=== PATIENT | female | born 1950 | race Caucasian/White ===

== ENCOUNTER 2019-05-01 06:00 | Outpatient (RCR) | payer MEDICARE, SELFPAY | END 2019-05-31 00:01 | LOC: SOT 06:00 | PROVIDERS: Family Provider Family Medicine; Visit Provider Family Medicine | DX: R20.0 Anesthesia of skin (principal) | CPT/HCPCS: 97110 ×6; 97530 ×2 ==

== ENCOUNTER 2019-06-01 06:00 | Outpatient (RCR) | payer MEDICARE, SELFPAY | END 2019-06-07 23:00 | disposition home or self-care (01) | LOC: SOT 06:00 | PROVIDERS: Family Provider Family Medicine; PCP Family Medicine; Visit Provider Family Medicine | DX: R20.0 Anesthesia of skin (principal) | CPT/HCPCS: 97110; 97530 ==

== ENCOUNTER → 2019-06-14 15:15 | Outpatient (BNVA) | payer MEDICARE, SELFPAY | PROVIDERS: Family Provider Family Medicine; PCP Family Medicine; Referring Provider Family Medicine; Visit Provider Internal Medicine Rheumatology | DX: M15.4 Erosive (osteo)arthritis (principal); Z79.899 Other long term (current) drug therapy; M81.0 Age-related osteoporosis without current pathological fracture; Z79.52 Long term (current) use of systemic steroids | CPT/HCPCS: 99213 ==

== ENCOUNTER → 2019-09-14 10:35 | Outpatient (BNVA) | payer MEDICARE, SELFPAY | PROVIDERS: Family Provider Family Medicine; PCP Family Medicine; Visit Provider Internal Medicine Rheumatology | DX: Z79.899 Other long term (current) drug therapy (principal) | CPT/HCPCS: 36415; 80076; 82306; 82565; 85025; 85651; 86140 ==

== ENCOUNTER → 2019-09-14 10:48 | Outpatient (BNVA) | payer MEDICARE, SELFPAY | PROVIDERS: Family Provider Family Medicine; PCP Family Medicine; Visit Provider Internal Medicine Rheumatology | DX: Z79.899 Other long term (current) drug therapy (principal) | CPT/HCPCS: 85025 ==

== ENCOUNTER → 2019-12-01 10:46 | Outpatient (BNVA) | payer MEDICARE, SELFPAY | PROVIDERS: Family Provider Family Medicine; PCP Family Medicine; Visit Provider Internal Medicine Rheumatology | DX: Z79.899 Other long term (current) drug therapy (principal) | CPT/HCPCS: 36415; 80076; 82565; 85025; 85651; 86140 ==

== ENCOUNTER → 2019-12-22 15:25 | Outpatient (BNVA) | payer MEDICARE, SELFPAY | PROVIDERS: Family Provider Family Medicine; PCP Family Medicine; Visit Provider Internal Medicine Rheumatology | DX: M19.041 Primary osteoarthritis, right hand (principal); Z79.899 Other long term (current) drug therapy; M19.042 Primary osteoarthritis, left hand; M89.49 Other hypertrophic osteoarthropathy, multiple sites; M16.0 Bilateral primary osteoarthritis of hip | CPT/HCPCS: 99213 ==

== ENCOUNTER → 2020-06-19 08:33 | Outpatient (BNVA) | payer MEDICARE, SELFPAY | PROVIDERS: Family Provider Family Medicine; PCP Family Medicine; Visit Provider Internal Medicine Rheumatology | DX: M19.041 Primary osteoarthritis, right hand (principal); M19.042 Primary osteoarthritis, left hand; M89.49 Other hypertrophic osteoarthropathy, multiple sites; Z79.899 Other long term (current) drug therapy | CPT/HCPCS: 36415; 80076; 82306; 82565; 85025; 85651; 86140 ==

== ENCOUNTER → 2020-06-26 10:48 | Outpatient (BNVA) | payer MEDICARE, SELFPAY | PROVIDERS: Family Provider Family Medicine; PCP Family Medicine; Visit Provider Internal Medicine Rheumatology | DX: M15.4 Erosive (osteo)arthritis (principal); Z79.899 Other long term (current) drug therapy; M89.49 Other hypertrophic osteoarthropathy, multiple sites | CPT/HCPCS: 99213; 99214 ==

== ENCOUNTER → 2020-11-28 13:45 | Outpatient (BNVA) | payer MEDICARE, SELFPAY | PROVIDERS: Family Provider Family Medicine; PCP Family Medicine; Visit Provider Internal Medicine Rheumatology | DX: M16.2 Bilateral osteoarthritis resulting from hip dysplasia (principal); M19.041 Primary osteoarthritis, right hand; M19.042 Primary osteoarthritis, left hand; M89.49 Other hypertrophic osteoarthropathy, multiple sites; Z51.81 Encounter for therapeutic drug level monitoring; Z79.899 Other long term (current) drug therapy | CPT/HCPCS: 36415; 80076; 82565; 85025; 86140 ==

== ENCOUNTER → 2020-12-12 10:43 | Outpatient (BNVA) | payer MEDICARE, SELFPAY | PROVIDERS: Family Provider Family Medicine; PCP Family Medicine; Visit Provider Internal Medicine Rheumatology | DX: M19.041 Primary osteoarthritis, right hand (principal); M19.042 Primary osteoarthritis, left hand; G57.01 Lesion of sciatic nerve, right lower limb; M89.49 Other hypertrophic osteoarthropathy, multiple sites; Z79.899 Other long term (current) drug therapy | CPT/HCPCS: 99214 ==

== ENCOUNTER 2020-12-13 10:26 | Outpatient (CLI) | payer MEDICARE, SELFPAY ==
--- NOTE | 2020-12-13 10:41 | XR_ITS ---
WS: [id number] Chest 2 views, 12/13/2020 Clinical Data: R05 - Cough Comparison: None. Findings: No nodules, masses or effusions are seen. The heart is normal. The pulmonary vascularity is not increased. No pneumonia or pneumothorax is seen. XR/XR chest 2V* [id number] Impression: Negative chest.
== END 2020-12-13 10:27 | disposition home or self-care (01) ==
PROVIDERS: PCP Family Medicine; Visit Provider Internal Medicine Rheumatology
DX: R05 Cough (principal)
CPT/HCPCS: 71046

== ENCOUNTER → 2021-03-26 10:32 | Outpatient (BNVA) | payer MEDICARE, SELFPAY | PROVIDERS: PCP Family Medicine; Visit Provider Internal Medicine Rheumatology | DX: M16.0 Bilateral primary osteoarthritis of hip (principal); M19.041 Primary osteoarthritis, right hand; M19.042 Primary osteoarthritis, left hand; M89.49 Other hypertrophic osteoarthropathy, multiple sites; G57.03 Lesion of sciatic nerve, bilateral lower limbs; Z79.899 Other long term (current) drug therapy | CPT/HCPCS: 36415; 80076; 82565; 85025; 86140; 99214 ==

== ENCOUNTER → 2021-09-24 10:18 | Outpatient (BNVA) | payer MEDICARE, SELFPAY | PROVIDERS: PCP Family Medicine; Visit Provider Internal Medicine Rheumatology | DX: M19.041 Primary osteoarthritis, right hand (principal); M19.042 Primary osteoarthritis, left hand; M89.49 Other hypertrophic osteoarthropathy, multiple sites; G57.01 Lesion of sciatic nerve, right lower limb; Z79.899 Other long term (current) drug therapy | CPT/HCPCS: 99214 ==

== ENCOUNTER → 2022-03-11 10:43 | Outpatient (BNVA) | payer MEDICARE, SELFPAY | PROVIDERS: PCP Family Medicine; Visit Provider Internal Medicine Rheumatology | DX: M19.041 Primary osteoarthritis, right hand (principal); M19.042 Primary osteoarthritis, left hand; Z79.899 Other long term (current) drug therapy; M89.49 Other hypertrophic osteoarthropathy, multiple sites; M16.9 Osteoarthritis of hip, unspecified; G57.03 Lesion of sciatic nerve, bilateral lower limbs | CPT/HCPCS: 99214 ==

== ENCOUNTER → 2022-08-25 10:55 | Outpatient (BNVA) | payer MEDICARE, SELFPAY | PROVIDERS: PCP Family Medicine; Visit Provider Internal Medicine Rheumatology | DX: M19.041 Primary osteoarthritis, right hand (principal); M19.042 Primary osteoarthritis, left hand; G57.01 Lesion of sciatic nerve, right lower limb; M89.49 Other hypertrophic osteoarthropathy, multiple sites; Z79.899 Other long term (current) drug therapy | CPT/HCPCS: 99214 ==

== ENCOUNTER → 2023-02-16 10:43 | Outpatient (BNVA) | payer MEDICARE, SELFPAY | PROVIDERS: PCP Family Medicine; Visit Provider Internal Medicine Rheumatology | DX: M19.041 Primary osteoarthritis, right hand (principal); M19.042 Primary osteoarthritis, left hand; G57.01 Lesion of sciatic nerve, right lower limb; M89.49 Other hypertrophic osteoarthropathy, multiple sites; Z79.899 Other long term (current) drug therapy | CPT/HCPCS: 99214 ==

== ENCOUNTER → 2023-08-10 10:06 | Outpatient (BNVA) | payer MEDICARE, SELFPAY | PROVIDERS: PCP Family Medicine; Visit Provider Internal Medicine Rheumatology | DX: M19.041 Primary osteoarthritis, right hand (principal); M19.042 Primary osteoarthritis, left hand; G57.01 Lesion of sciatic nerve, right lower limb; M89.49 Other hypertrophic osteoarthropathy, multiple sites; Z79.899 Other long term (current) drug therapy | CPT/HCPCS: 99214 ==

== ENCOUNTER → 2023-10-09 09:02 | Outpatient (BNVA) | payer MEDICARE, SELFPAY | PROVIDERS: PCP Family Medicine; Referring Provider Family Medicine; Visit Provider Student in an Organized Health Care Education/Training Program | DX: M16.11 Unilateral primary osteoarthritis, right hip | CPT/HCPCS: 73522; 99204 ==

== ENCOUNTER → 2023-12-18 10:11 | Outpatient (BNVA) | payer MEDICARE, SELFPAY | PROVIDERS: PCP Family Medicine; Visit Provider Student in an Organized Health Care Education/Training Program | DX: M16.11 Unilateral primary osteoarthritis, right hip (principal) | CPT/HCPCS: 20610; 77002; 99213; J3301 ==

== ENCOUNTER → 2024-02-08 10:00 | Outpatient (BNVA) | payer MEDICARE, SELFPAY | PROVIDERS: PCP Family Medicine; Visit Provider Internal Medicine Rheumatology | DX: Z79.899 Other long term (current) drug therapy (principal); M89.49 Other hypertrophic osteoarthropathy, multiple sites; G57.01 Lesion of sciatic nerve, right lower limb; M19.041 Primary osteoarthritis, right hand; M19.042 Primary osteoarthritis, left hand | CPT/HCPCS: 36415; 80076; 82565; 85025; 85651; 86140; 99214 ==

== ENCOUNTER → 2024-03-17 09:08 | Outpatient (BNVA) | payer MEDICARE, SELFPAY | PROVIDERS: PCP Family Medicine; Visit Provider Student in an Organized Health Care Education/Training Program | DX: M16.11 Unilateral primary osteoarthritis, right hip (principal); Z01.818 Encounter for other preprocedural examination | CPT/HCPCS: 99214 ==

== ENCOUNTER 2024-04-18 13:20 | Outpatient (CLI) | payer MEDICARE, SELFPAY ==
--- NOTE | 2024-04-18 13:45 | CT_ITS ---
WS: [id number] CT RIGHT hip for JANNETTE procedure HISTORY: RIGHT TOTAL HIP ARTHROPLASTY Date: 04/18/2024 1:48 PM TECHNIQUE: Protocol for JANNETTE total hip replacement has been obtained. This includes axial imaging fro m the hip joint through the knee joint. DLP: [id number] FINDINGS: Advanced arthritis RIGHT hip with [id number]-xh-frxi articulation. Subchondral sclerosis with extensive sub chondral cystic change involving the femoral head and acetabulum. Hypertrophic spurring about the natividad nt line. Facet arthropathy lower lumbar spine. Degenerative arthritis both sacroiliac joints. Vascular calcifi cation. Sigmoid diverticulosis. CT/CT hip RT JANNETTE [id number] IMPRESSION: CT imaging provided for JANNETTE robotic total hip replacement.
== END 2024-04-18 13:21 | disposition home or self-care (01) ==
LOC: RAD 13:21
PROVIDERS: PCP Family Medicine; Visit Provider Student in an Organized Health Care Education/Training Program
DX: Z01.818 Encounter for other preprocedural examination (principal); M16.11 Unilateral primary osteoarthritis, right hip; M25.751 Osteophyte, right hip; M47.896 Other spondylosis, lumbar region; M46.1 Sacroiliitis, not elsewhere classified; K57.90 Diverticulosis of intestine, part unspecified, without perforation or abscess without bleeding
CPT/HCPCS: 73700

== ENCOUNTER → 2024-04-21 09:45 | Outpatient (BNVA) | payer MEDICARE, SELFPAY | PROVIDERS: PCP Family Medicine; Visit Provider Student in an Organized Health Care Education/Training Program | DX: M16.11 Unilateral primary osteoarthritis, right hip | CPT/HCPCS: 99214 ==

== ENCOUNTER → 2024-05-02 12:37 | Outpatient (BNVA) | payer MEDICARE, SELFPAY | PROVIDERS: PCP Family Medicine; Visit Provider Family Medicine | DX: Z01.818 Encounter for other preprocedural examination (principal) | CPT/HCPCS: 80053; 81003; 85025 ==

== ENCOUNTER 2024-05-09 17:35 | Observation (INO) | payer MEDICARE, SELFPAY ==
[2024-05-09] VITALS (15 sets, daily range): BP systolic 108–150; BP diastolic 48–96; PULSE 48–85; RESP 15–21; TEMP 36.2–36.8; O2SAT 96–100; BMI 28.3; BMI 29.2
[2024-05-09] MEDS: sodium chloride 0.9% 1,000 ML 30 ML IV (12:30)
[2024-05-09] MEDS: acetaminophen 1,000 MG/100 ML PIGGYBACK 400 MG IV ×2 (12:31→20:35)
[2024-05-09] MEDS: ketorolac 30 mg/mL INJ IVP (12:31)
[2024-05-09] MEDS: scopolamine 1.5 Patch 1 PATCH TRANSDERMA (12:31)
--- NOTE | 2024-05-09 12:49 | ANES.PREANE2 ---
Pre-Anesthetic Assessment Height/Weight: Height 5 ft Weight 145 lb Temp Pulse Resp BP Pulse Ox O2 Del Method 97.7 F 85 16 139/66 98 Room Air 05/09/24 12:13 05/09/24 12:13 05/09/24 12:13 05/09/24 12:13 05/09/24 12:13 05/09/24 12:14 Preop Diagnosis: Hip osteoarthritis Operation Date: 05/09/24 13:40 Proposed Procedures p Kieran Robot Total Hip Arthroplasty(Right) - Peng Luevano, DO Was Beta Sofy taken within 24 hours: N/A Was Clonidine taken within 24 hours: N/A Last intake: Intake Last Liquid Date 05/08/24 Last Liquid Time 23:50 Last Solid Date 05/08/24 Last Solid Time 23:50 Social No alcohol and No tobacco Exam alert, oriented x 3, clear to auscultation bilaterally and regular rate & rhythm Airway Submandibular: within normal limits Cervical ROM: within normal limits Mallampati: Class II Dentition: full Comments: Comments: Denies any loose teeth Anesthetic Plan ASA status: 2 Anesthesia: MAC and Regional (specify below) Other: No prior issues with anesthesia NPO since yesterday History of hypertension on losartan?HCTZ Patient has been taking tramadol for her hip pain Denies any pulmonary issues Labs 05/02/2024 reviewed acceptable for procedure. Type and screen sent off METs greater than 4 Plan for spinal anesthetic Medications/Allergies Home Medications Medication Instructions Recorded Confirmed Last Taken Type alprazolam 0.25 mg tablet 0.25 mg PO BID 06/14/19 05/05/24 05/05/24 History ascorbate calcium (vitamin C) 500 500 mg PO BID 06/14/19 05/05/24 05/05/24 History mg tablet biotin 1,000 mcg chewable tablet 1,000 mcg PO BID 06/14/19 05/05/24 Unknown History calcium 300 mg-vit D3 200 tab PO DAILY 06/14/19 05/02/24 Unknown History wvkn-hsqkqicx-winxsavak 13.5 mg tablet (Citracal Plus Bone Density Builder) cholecalciferol (vitamin D3) 25 1,000 unit PO QID 06/14/19 05/02/24 Unknown History mcg (1,000 unit) chewable tablet multivitamin 1 tab PO QAM 06/14/19 05/05/24 05/05/24 History tramadol 50 mg tablet 50 mg PO BID PRN Pain (Scale Score 06/14/19 05/05/24 Unknown History 4-6) lutein 20 mg tablet 20 mg PO BID 09/13/19 05/05/24 Unknown History omega-3 fatty acids 1,000 mg 1,000 mg PO BID 09/13/19 05/05/24 Unknown History capsule (Fish Oil Concentrate) losartan 100 1 tab PO DAILY 06/26/20 05/09/24 05/09/24 History mg-hydrochlorothiazide 12.5 mg tablet acetaminophen 500 mg capsule 1,000 mg PO BID 08/10/23 05/05/24 Unknown History ferrous sulfate [High Potency Iron] PO 08/10/23 05/02/24 Unknown History prednisone 5 mg tablet See Rx Instructions .Route 12/22/23 05/05/24 Unknown Rx .COMPLEX #30 tabs gabapentin 300 mg capsule 600 mg (2 x 300 mg) PO .HS #180 02/08/24 05/09/24 05/09/24 Rx caps hydroxychloroquine 200 mg tablet 200 mg PO BID #180 tabs 02/08/24 05/05/24 05/05/24 Rx (Plaquenil) Allergies Allergy/AdvReac Type Severity Reaction Status Date / Time sulfacetamide Allergy unknown Verified 05/05/24 11:21 Current Medications Generic Name Dose Route Start Last Admin Trade Name Freq PRN Reason Stop Dose Admin Sodium Chloride 1,000 mls @ 30 mls/hr 05/09/24 12:15 05/09/24 12:30 Sodium Chloride 0.9% IV 05/10/24 12:14 30 mls/hr .Q24H BOBO Administration PFSH Anesthesia Medical History Piriformis syndrome of right side DJD (degenerative joint disease), multiple sites Osteoarthritis of hands, bilateral Unspecified osteoarthritis, unspecified site High risk medication use Immunization counseling Medication monitoring encounter 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
--- NOTE | 2024-05-09 13:17 | W.PM.OPSUD ---
Surgery/Procedure H&P Update DATE OF PROCEDURE: May 09, 2024 DATE H&P PERFORMED: 04/21/24 H&P UPDATE INFORMATION: I have reviewed H&P completed within last 30 days, I have examined patient prior to procedure and No changes to prior documentation CHANGES TO PREVIOUS DOCUMENTATION: Patient is cleared the preoperative clearance process she has held her hydroxychloroquine. At this point time reviewing of her hip as well as with her pannus we talked about proceeding with a posterior approach I feel this would be a accommodate for her pannus as well if the case intraoperatively we determined that we need to cement this would be a more utility Terrien approach we talked about this in detail and she understands the ins and outs procedure risk benefits complication alternatives surgery and through shared decision make elects proceed with a right total hip arthroplasty?Kieran robotic assisted with posterior approach. All questions answered. PREOP DIAGNOSIS: Right hip osteoarthritis PRIMARY INDICATION FOR PROCEDURE: Right hip degenerative joint disease PLANNED PROCEDURE: Operation Date: 05/09/24 13:40 Proposed Procedures p Kieran Robot Total Hip Arthroplasty(Right) - Peng Luevano DO
[2024-05-09] MEDS: ceFAZolin 2,000 mg SDV 2000 MG IVP (13:58)
[2024-05-09] MEDS: tranexamic acid 1,000 mg/10mL SDV 1000 MG IV (13:59)
[2024-05-09] MEDS: VANCOMYCIN ADD-Vantage 1,000 MG VIAL 1000 MG XX ×2 (14:57→16:19)
--- NOTE | 2024-05-09 16:28 | P.BOP_ITS ---
Date of Procedure: 05/09/2024 Surgeon: Peng Luevano DO Telecommunications Operator(s): Jackson Luevano PA-C Procedure(s) performed: Right total hip arthroplasty?Kieran robotic assisted (posterior approach) Findings of the procedure(s): Patient found to have right hip degenerative joint disease underwent procedure as planned without issues or complications Estimated blood loss: 100 mL Specimen(s) removed: Femoral head resection and acetabular reamings removed Post-operative diagnosis: Right hip degenerative joint disease
--- NOTE | 2024-05-09 16:29 | PM.OP ---
Operative Report Date of procedure: May 09, 2024 Surgeon: Peng Luevano DO Historical Guide: Jackson Luevano PA-C: PA was necessary for assistance in this case with leg positioning, hip reductions, retraction and protection of neurovascular structures as well as assistance in implantation wound closure and dressing application. Procedure: Preop Diagnosis?Right hip degenerative joint disease Post-op diagnosis: Right hip degenerative joint disease Procedure done: Right total hip arthroplasty?robotic assisted Kieran?(posterior?approach) Implants: [place] total hip arthroplasty implants 46 mm cluster hole acetabular shell 6.5 mm x (25 and 15 mm) acetabular screws Alpha code C MDM cementless metal liner Reno insignia size 4 stem, high offset Alpha code C MDM +0 mm head Surgeon: Peng Luevano DO Estimated blood loss: 100 mL IV fluids: 1200 mL Urine output: 150 mL Complications: None Condition: stable Disposition: floor Brief History: Patient's been seen and worked up in the outpatient setting and findings consistent with Right hip degenerative joint disease. Pt has failed conservative treatment this is causing severe pain and decreased mobility. We talked about his treatment options as far as nonoperative and operative intervention. Pt ultimately through shared decision-making would like to proceed with a Right total hip arthroplasty. we detailed out risk benefits complications alternatives to surgical and nonsurgical treatment options. Understanding risk for surgery patient elects to proceed with Right total hip arthroplasty robotic assisted Kieran utilizing a?posterior?approach. All questions answered. Patient consent obtained today and elects proceed with surgery today. Procedure: Patient was seen evaluate in preoperative holding area.? Consent was reviewed and signed with patient.? Correct extremity was then marked.? Patient seen evaluate by anesthesia department once cleared for surgery pt was taken back to the operative suite.? Patient underwent spinal anesthesia per the anesthesia department.? This point time pt was then placed on the operative suite and table.? Pt was then placed in lateral decubitus patient worked with the Right hip up.? Patient was secured in the lateral decubitus position with pegboard. All bony prominences well-padded pt was properly secured to the bed.? At this point time the Right lower extremity was then prepped and draped in standard orthopedic fashion with care not to drape out the iliac wing for pelvic array placement.? Final timeout performed.? Patient received appropriate preoperative antibiotics. Started off with establishment of pelvic array pins.? A small longitudinal incision was made directly over the iliac wing.? Sharp scalpel excision through skin and subcutaneous tissue directly onto bone.? Next I then loaded my pelvic pin.? This was then drilled through the iliac wing corridor with excellent fixation.? Next I then loaded the guide which was placed directly onto bone and then subsequently placed 2 more pins to secure fixation.? Next the pelvic array was then sent had excellent visualization with the Kieran robot and was secured. EKG pad was placed on the distal lateral aspect of the femur and sterile aseptic technique and use as my distal reference point. Next I proceeded with my standard?posterior?approach.? Sharp scalpel through skin and subcutaneous tissue this was centered over the greater trochanter.? I then utilized a Santiago elevator over the gluteus mookie fascia.? Next the fascia was then split longitudinally with bipolar electrocautery.? Next a Charnley retractor was then placed.? All bone was then placed into the abductors.? A standard full-thickness release of the piriformis and the short external rotators along with the capsule to grade 1 full thick sleeve for later repair was then placed straight down to the lesser trochanter.? Lesser trochanter was then subsequently identified.? Prior to dislocating the hip we then placed our greater trochanter femur checkpoint.? We marked our appropriate checkpoint for referencing on pelvic array.? At this point in time we then established both of our checkpoints as well as referencing for leg lengths I utilized the EKG pad as my distal reference point. The legs were marked and traced to have appropriate position on the drapes to allow for accurate reading.? Preoperative leg lengths set. Once this was then established I then proceeded with dislocation of the femoral head.? At this point Hohmann's were then placed superiorly and inferiorly along the femoral neck.? The sciatic nerve was protected throughout this case.? At this point time I then utilized the Kieran robot and referencing point to reference different aspects along the femoral head and neck for my appropriate neck length.? These were referenced on the inferior mid substance as well as up into the superior shoulder of the femoral neck.? This marked my oscillating saw was used to make my femoral neck cut.? Femoral head was then removed. Next the leg was placed in appropriate position and my anterior and?posterior?acetabular retractors then placed.? Next I excised the labrum and then remove the pulvinar.? I did do a small release of the inferior capsule which was severely taut to allow for easier placement of my reamers as well as reduction.? Acetabulum was thoroughly irrigated. At this point in time keeping my retractors in place I subsequently loaded up the [employer] robot for my acetabular reaming.?? Next I then set my 46 reamer under the [employer] robot and subsequently held this with appropriate preplanned preop planned version of 40 degrees of abduction angle as well as 23 degrees of anteversion.? This preoperative plan was then subsequently made to accommodate for ranges of motion of impingement?that was assessed preoperatively utilizing the [employer] robotic software technology. I then subsequently reamed this to the appropriate depth with 46mm reamer this had excellent bleeding bone circumferentially was determined to be in the satisfactory cup size. We opened up the acetabular shell clusterhole of the 46 mm Hugo this was then loaded onto my impacting system and then I subsequently impacted this to appropriate depth.? This was then removed from the robot and I used the [employer] probe at the center to confirm on the CT scan?that this was down on bone which it was.? Next I then drilled and placed 2 acetabular screws with excellent fixation these were drilled and measured to be 25mm and 15 mm this was in the?posterior?superior aspect of the acetabulum had excellent bite and fixation.? The cup was solid and had excellent press-fit fixation. next, opened the alpha code C MDM cementless liner then subsequently placed in appropriate position and impacted into place.? At this point time I then utilized a small rongeur to clear off the shoulder of the femoral neck to clear out the soft tissue envelope for my box osteotome.? Next box osteotome was used a canal finder was placed as well as a lateral lysing rattail rasp.? Once I was appropriately lateralized I then sequentially broached up to a size 4 femoral stem.? This was impacted to appropriate depth and flushed with my femoral neck cut.? I utilized a calcar planer to calcar plane. This point I loaded a standard size neck and subsequently reduced the hip.? At this point in time the hip was taken through range of motion before evaluating with the robot on leg lengths.? This point in time I satisfied with the high offset having satisfactory aspect comparative to our preoperative plan as well as slightly lengthening which was our preoperative plan as well this was found to have excellent stability in all planes of motion. The hip was taken through range of motion and had excellent stability with hip flexion and internal rotation with no evidence of instability and had appropriate shuck.? This point time utilized the Kieran probe from our femur checkpoint down to her distal checkpoint. Satisfied with this trial implants, at this point I dislocated the hip and then called for my final implants with excellent stability in all planes.? Opened up a size 4 femoral Ren[place] insignia stem high offset. My trials were then removed and then subsequently impacted my Hugo insignia to the same level.? This point in time I trialed up to a +0 mm neck length which helped match with Kieran robotic assistance had appropriate leg lengths comparative to our preoperative plan and this was confirmed clinically. I elected for the final +0 mm MDM femoral head. Final MDM femoral head component was then opened and the trunnion was dried and this was impacted with excellent fixation and the hip was subsequently reduced.? We measured our final leg lengths which were appropriate patient had excellent stability in all ranges of motion.? This point time robotic pins and checkpoints were removed.? I remove the femur checkpoint as well as my pelvic array and iliac wing pins.? Appropriate counts were then made.? This point time thoroughly irrigated the wound bed with pulse lavage.? Vancomycin powder was then sprinkled into the wound bed.? I then performed a standard capsular and external rotator repair utilizing #5 Ethibond and this was tied and repaired through bone tunnels hip, sciatic nerve was protected throughout the of the case. Was then kept in abduction external rotation and subsequently closed the fascial layer with Ethibond suture as well as running strata fix suture.? I then closed the deep subcutaneous layer as well as superficial subcutaneous layer with running strata fix suture as well as 3-0strata fix for skin.? Prineo glue dressing was then placed over the skin.? I then irrigated the pelvic array pin site.? There is were then closed with interrupted 0, 2-0 Vicryl suture and Monocryl as well as Prineo glue for the skin.? Incisions were then covered with nena and Silverlon dressing.? Patient was awakened from anesthesia and taken to PACU in stable condition Disposition: Patient taken to PACU in stable condition.? Patient will receive appropriate discharge instructions as well as DVT prophylaxis and pain medication.? Patient will be admitted to the floor for observation should be evaluated by the internal medicine team for medical management.? Patient received appropriate DVT prophylaxis as well as pain medication PT/OT weightbearing as tolerated Right lower extremity with?posterior?hip precautions, Postoperative Abx and TXA.? We will follow-up with patient in the office in 2 weeks.? Patient understands agrees with current plan.? All questions answered.
--- NOTE | 2024-05-09 16:51 | P.CONIM_ITS ---
Providers/Reason For Consult Consulting Physician/Specialty*: Postop management Reason for Consult*: Hospitalist Attending Physician: Peng Luevano DO Primary Care Provider: Erfem Hansen MD History of Present Illness History of Present Illness Adamaris Wilson is a 73 year old female status post right total hip arthroplasty history of inflammatory arthritis, hypertension, hospitalist service was consulted for postop management. Patient is doing well, not endorsing active pain, tolerating diet, discontinue IV fluids, she is excited to go home tomorrow stating that she has 2 dogs, she lives with her niece. No active chest pain or shortness of breath. Blood pressure has been stable. Review of Systems Const: Denies: fever(s) Eyes: Denies: change in vision ENMT: Denies: throat pain Card: Denies: chest pain Medications/Allergies Home Medications Medication Instructions Recorded Confirmed Last Taken Type alprazolam 0.25 mg tablet 0.25 mg PO BID 06/14/19 05/05/24 05/05/24 History ascorbate calcium (vitamin C) 500 500 mg PO BID 06/14/19 05/05/24 05/05/24 History mg tablet biotin 1,000 mcg chewable tablet 1,000 mcg PO BID 06/14/19 05/05/24 Unknown History calcium 300 mg-vit D3 200 tab PO DAILY 06/14/19 05/02/24 Unknown History yuwf-sljejizy-nycnbembj 13.5 mg tablet (Citracal Plus Bone Density Builder) cholecalciferol (vitamin D3) 25 1,000 unit PO QID 06/14/19 05/02/24 Unknown H istory mcg (1,000 unit) chewable tablet multivitamin 1 tab PO QAM 06/14/19 05/05/24 05/05/24 History tramadol 50 mg tablet 50 mg PO BID PRN Pain (Scale Score 06/14/19 05/05/24 Unknown History 4-6) lutein 20 mg tablet 20 mg PO BID 09/13/19 05/05/24 Unknown History omega-3 fatty acids 1,000 mg 1,000 mg PO BID 09/13/19 05/05/24 Unknown History capsule (Fish Oil Concentrate) losartan 100 1 tab PO DAILY 06/26/20 05/09/24 05/09/24 History mg-hydrochlorothiazide 12.5 mg tablet acetaminophen 500 mg capsule 1,000 mg PO BID 08/10/23 05/05/24 Unknown History ferrous sulfate [High Potency Iron] PO 08/10/23 05/02/24 Unknown History prednisone 5 mg tablet See Rx Instructions .Route 12/22/23 05/05/24 Unknown Rx .COMPLEX #30 tabs gabapentin 300 mg capsule 600 mg (2 x 300 mg) PO .HS #180 02/08/24 05/09/24 05/09/24 Rx caps hydroxychloroquine 200 mg tablet 200 mg PO BID #180 tabs 02/08/24 05/05/24 05/05/24 Rx (Plaquenil) Allergies Allergy/AdvReac Type Severity Reaction Status Date / Time sulfacetamide Allergy unknown Verified 05/05/24 11:21 Current Medications Generic Name Dose Route Start Last Admin Trade Name Freq PRN Reason Stop Dose Admin Sodium Chloride 1,000 mls @ 30 mls/hr 05/09/24 12:15 05/09/24 12:30 Sodium Chloride 0.9% IV 05/10/24 12:14 30 mls/hr .Q24H BOBO Administration PFSH Acute PFSH: Medical History Piriformis syndrome of right side DJD (degenerative joint disease), multiple sites Osteoarthritis of hands, bilateral Unspecified osteoarthritis, unspecified site High risk medication use Immunization counseling Medication monitoring encounter 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 Osteoporosis Erosive osteoarthritis of hands, bilateral Surgical History No history of previous surgery Family History Other Diabetes Rheumatoid arthritis Denies family history of Systemic lupus erythematosus (SLE) in adult Stroke Social History Smoking and tobacco/nicotine status: never used tobacco/nicotine Alcohol intake: never Substance/Drug Use: never Vitals/I&O/Wt Last Vital Signs Temp 97.7 F 05/09/24 12:13 Pulse 85 05/09/24 12:13 Resp 16 05/09/24 12:13 BP 139/66 05/09/24 12:13 Pulse Ox 98 05/09/24 12:13 O2 Del Method Room Air 05/09/24 12:14 05/09/24 05/09/24 05/09/24 06:59 14:59 22:59 Intake Total 100 / 100 100 / 200 Balance 100 / 100 100 / 200 Weight last 48 hrs Weight 65.771 kg Physical Exam Narrative: Awake alert Euvolemic GCS 15 S1, S2 Currently on room air Hemodynamically stable Pleasant and cooperative Abdomen soft Lower extremity without any signs of neurovascular compromise Not complaining active distress Urinary Catheter Management: Daly: Cath Placed During This Visit: yes Urinary Catheter Date of Insertion: 05/09/24 Urinary Catheter Time of Insertion: 14:20 A&P Assessment and plan (1) Erosive osteoarthritis of hands, bilateral: (2) 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: (3) S/P total hip arthroplasty: (4) Hypertension: Plan Right total hip arthroplasty postop day 0 I will resume her hydroxychloroquine Continue losartan for hypertension Eliquis added as DVT prophylaxis by orthopedics Physical therapy ordered Monitor H&H CBC BMP tomorrow Discontinue IV fluids if she is able to tolerate diet Consult Attestations Medical Necessity Statement: Anticipating discharge by orthopedics tomorrow Diagnoses Erosive osteoarthritis of hands, bilateral M15.4 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
--- NOTE | 2024-05-09 16:54 | XRR_ITS ---
PROCEDURE INFORMATION: Exam: XR Right Hip Exam date and time: 05/09/2024 5:09 PM Age: 73 years old Clinical indication: Device placement; Other: Total RT hip; Prior surgery; Surgery date: Post-operative (0-2 days); Surgery type: Post op RT hip; Additional info: S/P R elizabeth TECHNIQUE: Imaging protocol: Radiologic exam of the right hip. Views: 1 view hip with pelvis when performed. COMPARISON: CT hip RT [facility] [id number] 04/18/2024 1:49 PM FINDINGS: Bones/joints: Status post right total hip replacement. Acetabular and proximal femoral components are intact and in satisfactory alignment. There are postoperative changes in the adjacent soft tissues including air and edema and/or hematoma. There are marginal osteophytes across the left hip joint. There is air in the right hip joint. Soft tissues: See Bones/joints finding. XR/XR hip RT 2-3V wo/w pel* [id number] IMPRESSION: Status post right total hip replacement with adjacent postoperative changes.
--- NOTE | 2024-05-09 16:55 | PM.PACU ---
PACU note Narrative: Patient is a 73-year-old female just underwent a right total hip arthroplasty. Pt transferred to PACU in stable condition. Dressing is dry. pt is awake and alert. Compartments are soft and compressible. distal pulses are palpable toes are warm and well-perfused. Cap refill is normal and under 2 seconds. Unable to assess any further motor or sensation to lower extremity due to residual spinal block. Pain is controlled. Exam: awake Disposition: admitted
--- NOTE | 2024-05-09 17:36 | PC.NURSE ---
1700 - Dr Pond notified of pts heart rate from 44 - 52 - no new orders rec'd
[2024-05-09] MEDS: oxyCODONE 5 mg IR Tab/Cap PO (18:14)
--- NOTE | 2024-05-09 19:16 | ANE.PACU2 ---
Inpatient post-anesthesia follow up: Airway intact: Yes Vital signs: Temperature 97.9 F Pulse Rate 63 Respiratory Rate 17 Blood Pressure 127/61 Pulse Oximetry 99 Oxygen Delivery Me thod Room Air Oxygen Flow Rate 0 Fraction of Inspir ed Oxygen Hydration adequate: Yes Nausea and vomiting: No Pain level: 1 Mental status: Baseline
[2024-05-09] MEDS: sennosides-docusate Tablet 2 TAB PO (20:38)
[2024-05-09] MEDS: chlorhexidine gluconate 0.12% Btl 473 mL 30 ML MUCOUS MEM (20:38)
[2024-05-09] MEDS: calcium carb-vit d 600mg/400unit 1 Tablet 1 EACH PO (20:38)
[2024-05-09] MEDS: iron polysaccharide complex 150 mg Capsule PO (20:38)
[2024-05-09] MEDS: lactated ringers 1,000 ML 75 ML IV (20:39)
[2024-05-09] MEDS: mupirocin oint 22 gm 1 APPLIC NASAL (20:39)
[2024-05-09] MEDS: ceFAZolin 2,000 MG in sodium chloride 0.9% (plus) 50 ML 100 MG IV (20:40)
[2024-05-09] MEDS: ketorolac 30 mg/mL INJ 15 MG IVP (20:40)
[2024-05-09] MEDS: tranexamic acid 1,000 MG/100 ML PREMIX 600 MG IV (22:23)
[2024-05-10] VITALS (7 sets, daily range): BP systolic 113–131; BP diastolic 50–61; PULSE 63–84; RESP 16–18; TEMP 36.6–37.2; O2SAT 91–99
[2024-05-10] MEDS: oxyCODONE 5 mg IR Tab/Cap PO ×2 (02:58→10:52)
[2024-05-10] MEDS: acetaminophen 1,000 MG/100 ML PIGGYBACK 400 MG IV ×2 (04:53→10:52)
[2024-05-10] MEDS: ceFAZolin 2,000 MG in sodium chloride 0.9% (plus) 50 ML 100 MG IV ×2 (05:06→12:50)
[2024-05-10 05:41] LABS: Basophils % 0.8 %; Eosinophils # 0.2 10^3/uL (0.0-0.8); Eosinophils % 3.7 %; Lymphocytes # 1.2 10^3/uL (0.8-4.8); Lymphocytes % 23.6 %; Mean Corpuscular HGB Conc 32.2 g/dL (30-55); Mean Corpuscular Hemoglobin 32.7 pg (27-33); Mean Corpuscular Volume 101.6 fl (85-98); Mean Platelet Volume 9.1 fL (7.4-10.4); Monocytes # 0.4 10^3/uL (0.2-0.9); Monocytes % 8.2 %; Neutrophils # 3.08 10^3/uL (1.8-7.7); Neutrophils % 63.3 %; Nucleated Red Blood Cells % 0 %; Platelet Count 218 10^3/cmm (157-399); Red Blood Count 3.15 10^6/uL (3.85-5.65); Red Cell Distribution Width 13.3 % (12.1-15.1); White Blood Count 4.87 10^3/uL (3.29-11.43)
[2024-05-10 06:03] LABS: Anion Gap 11.2 (5-19); Blood Urea Nitrogen 15 mg/dL (8-23); Calcium 8.6 mg/dL (8.5-10.5); Carbon Dioxide 23 mmol/L (22-29); Chloride 107 mmol/L (98-107); Glucose 103 mg/dL (65-115); Osmolality Calculated 285 mOsm/kg (285-295); Potassium 4.2 mmol/L (3.5-5.1); Sodium 137 mmol/L (136-145)
[2024-05-10] MEDS: sennosides-docusate Tablet 2 TAB PO (09:01)
[2024-05-10] MEDS: iron polysaccharide complex 150 mg Capsule PO (09:01)
[2024-05-10] MEDS: multivitamin therapeutic Tablet 1 TAB PO (09:01)
[2024-05-10] MEDS: amlodipine 5 mg Tablet PO (09:02)
[2024-05-10] MEDS: losartan 50 mg Tablet 100 MG PO (09:02)
[2024-05-10] MEDS: apixaban 5 mg Tablet 2.5 MG PO (09:02)
[2024-05-10] MEDS: TRAMadol 50 mg Tablet PO (09:02)
[2024-05-10] MEDS: hydroxychloroquine 200 mg Tablet PO (09:02)
[2024-05-10] MEDS: calcium carb-vit d 600mg/400unit 1 Tablet 1 EACH PO (09:02)
[2024-05-10] MEDS: chlorhexidine gluconate 0.12% Btl 473 mL 30 ML MUCOUS MEM (09:03)
[2024-05-10] MEDS: mupirocin oint 22 gm 1 APPLIC NASAL (09:03)
--- NOTE | 2024-05-10 09:43 | P.PN_ITS ---
Subjective 2 Subjective: No issues overnight. Pain under control. Medications: Reviewed: Yes Vitals/I&O/Wt Last Vital Signs Temp 98.3 F 05/10/24 07:46 Pulse 84 05/10/24 09:02 Resp 16 05/10/24 09:02 BP 131/55 05/10/24 09:02 Pulse Ox 97 05/10/24 09:02 O2 Del Method Room Air 05/10/24 09:02 O2 Flow Rate 0 05/09/24 16:48 05/09/24 05/10/24 05/10/24 22:59 06:59 14:59 Intake Total 1100 / 1200 850 / 2050 240 / 240 Output Total 550 / 550 200 / 750 Balance 550 / 650 650 / 1300 240 / 240 Weight last 48 hrs Weight 69.082 kg Weight 65.771 kg Weight 65.771 kg Physical Exam 2 Narrative: General Exam no distress Neck is supple Cardiovascular regular rate and rhythm Lungs clear Abdomen soft Extremities no cyanosis clubbing, right hip dressing clean and dry. No foot drop. Urinary Catheter Management: Daly: Cath Placed During This Visit: yes, but has since been removed by the nurse Reason for Continuing Indwelling Catheter: Perioperative Use in Selected Surgeries Urinary Catheter Date of Insertion: 05/09/24 Urinary Catheter Time of Insertion: 14:20 Date Urinary Catheter Removed: 05/10/24 Time Urinary Catheter Discontinued: 06:00 Data 05/10/24 04:59 05/10/24 04:59 A&P Assessment and plan (1) Degenerative joint disease of right hip: Postoperative day #1 right hip total hip arthroplasty. Doing well. Mild post surgical acute blood loss anemia. No need for transfusion Eliquis will be used for DVT prophylaxis (2) Hypertension: Stable Plan Stable for discharge. Discussed risks and benefits of Eliquis with the patient as well. Thank you for this consultation Attestations 2 Medical Necessity Statement*: As per primary Diagnoses Degenerative joint disease of right hip M16.11 Hypertension I10 Time Spent (min) 18
--- NOTE | 2024-05-10 10:34 | PC.CHAP ---
Pastoral Care Encounter/Spiritual Assessment Type of Contact [] Declined air antisubmarine officer visit [] Patient/Family/Request visit [] Outpatient visit [] Follow-up visit [] Physician referral [] Code/Alert [x] Routine visit [] Staff referral [] Actively dying [] Patient sleeping [] Family support [] [] Out of room [] Palliative care [] [] Receiving care in room [] Pre-surgical visit [] Trauma [] Long length of stay [] ICU visit [] Other: Relational/Emotional Strength [x] Patient feels connected with others/family/visitors/staff [] Distress [] Loneliness/isolation [] Abandonment Spirituality of Patient [x] Person of Margaret [] Attends Yazdanism of their Margaret [x] Believes in Prayer [] Reads Bible or Yarsanism materials [] There are Spiritual issues to be addressed Real Estate Account Executive Interventions [x] Prayer [x] Active listening [] Non-anxious presence [x] Spiritual/emotional support [] Crisis/trauma care [] Spiritual counseling [] Bereavement support [] Provided bereavement packet [] Provided Bible/devotional materials [] Provided toy/stuffed animal, coloring book to patient or family member [] Provided Communion [] Anointing/[place] [] Salvation [x] Completed spiritual assessment [] Other: Impact on Illness or Injury [] Angry [] Fearful [] Anxious [] Often cries [] Exhaustion [] Unable to work [] Unable to attend lutheran [] Unable to walk/stand [] Unable to read [] Unable to drive [] Unable to eat/drink [] Unable to sleep [] Unable to be with family [] Patient intubated [] Other: Summary Time spent with patient 5 min
--- NOTE | 2024-05-10 12:54 | PM.DCS ---
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 Once cleared by anesthesia for surgery subsequently was taken back to the operative suite underwent anesthesia per the anesthesia department and then underwent [right ] total hip arthroplasty with Kieran robotic assistance posterior approach without any complications. Patient was then subsequently taken back to PACU in stable condition recovering well. Once recovered, patient was then subsequently admitted to the floor postoperatively. Internal medicine was consulted for medical management assistance. Patient weightbearing as tolerated to the right lower extremity, posterior hip precautions. PT/OT. Pain control. DVT prophylaxis. Postoperative antibiotics and TXA. dressing was change as needed. Internal medicine was on board and appreciate their medical management and assistance. Pt was determined on postoperative day [1 ] the patient was stable for discharge from orthopedic as well as internal medicine standpoint. Patient's labs were monitored daily. Patient will receive appropriate pain medication as well as DVT prophylaxis postoperatively. Appropriate discharge instructions as well. Patient was then discharged in stable condition. Patient will discharge home. Pt will follow-up with Orthopedics in the office in 2 weeks. Patient understands and agrees with current plan. All questions answered. Understands there is any issues or concerns and contact the office. Physical Exam Narrative: Right hip examination: Dressings on in place is clean dry and intact, calf soft nontender compartment soft compressible normal postoperative swelling and tenderness palpation about the right hip, patient is able to plantarflex and dorsiflex ankle sensation intact light touch distally. Distal pulses palpable. Urinary Catheter Management: Daly: Cath Placed During This Visit: yes, but has since been removed by the nurse Reason for Continuing Indwelling Catheter: Perioperative Use in Selected Surgeries Urinary Catheter Date of Insertion: 05/09/24 Urinary Catheter Time of Insertion: 14:20 Date Urinary Catheter Removed: 05/10/24 Time Urinary Catheter Discontinued: 06:00 Discharge Data Studies Completed and Pending Completed Studies During Hospitalization Category Date Time Status XR hip RT 2-3V wo/w pel* [id number] Routine Exams 05/09/24 16:54 Completed Pending at discharge Category Date Time Status Basic Metabolic Panel AM LABS Lab 05/11/24 04:00 Ordered Basic Metabolic Panel AM LABS Lab 05/12/24 04:00 Ordered Complete Blood Count w/Auto AM LABS Lab 05/11/24 04:00 Ordered Complete Blood Count w/Auto AM LABS Lab 05/12/24 04:00 Ordered Radiology Impressions Hip/Pelvis X-Ray 05/09/24 16:54 IMPRESSION: Status post right total hip replacement with adjacent postoperative changes. Laboratory Results WBC 4.87 10^3/uL (3.29-11.43) 05/10/24 04:59 RBC 3.15 10^6/uL (3.85-5.65) L 05/10/24 04:59 Hgb 10.30 g/dL (11.27-16.99) L 05/10/24 04:59 Hct 32.0 % (36-47) L 05/10/24 04:59 MCV 101.6 fl (85-98) H 05/10/24 04:59 MCH 32.7 pg (27-33) 05/10/24 04:59 MCHC 32.2 g/dL (30-55) 05/10/24 04:59 RDW 13.3 % (12.1-15.1) 05/10/24 04:59 Plt Count 218 10^3/cmm (157-399) 05/10/24 04:59 MPV 9.1 fL (7.4-10.4) 05/10/24 04:59 Neut % (Auto) 63.3 % 05/10/24 04:59 Lymph % (Auto) 23.6 % 05/10/24 04:59 [place] % (Auto) 8.2 % 05/10/24 04:59 Eos % (Auto) 3.7 % 05/10/24 04:59 Baso % (Auto) 0.8 % 05/10/24 04:59 Neut # (Auto) 3.08 10^3/uL (1.8-7.7) 05/10/24 04:59 Lymph # (Auto) 1.2 10^3/uL (0.8-4.8) 05/10/24 04:59 [place] # (Auto) 0.4 10^3/uL (0.2-0.9) 05/10/24 04:59 Eos # (Auto) 0.2 10^3/uL (0.0-0.8) 05/10/24 04:59 Baso # (Auto) 0.0 10^3/uL (0.0-0.1) 05/10/24 04:59 Nucleated RBC % (auto) 0 % 05/10/24 04:59 Nucleated RBCs # 0.0 /100WBC 05/10/24 04:59 Sodium 137 mmol/L (136-145) 05/10/24 04:59 Potassium 4.2 mmol/L (3.5-5.1) 05/10/24 04:59 Chloride 107 mmol/L (98-107) 05/10/24 04:59 Carbon Dioxide 23 mmol/L (22-29) 05/10/24 04:59 Anion Gap 11.2 (5-19) 05/10/24 04:59 BUN 15 mg/dL (8-23) 05/10/24 04:59 Creatinine 0.5 mg/dL (0.5-0.9) 05/10/24 04:59 GFR Calculation Not Reportable 05/10/24 04:59 Glucose 103 mg/dL (65-115) 05/10/24 04:59 Calculated Osmolality 285 mOsm/kg (285-295) 05/10/24 04:59 Calcium 8.6 mg/dL (8.5-10.5) 05/10/24 04:59 Blood Type O Positive 05/09/24 12:20 Rho(D) Type Rh positive 05/09/24 12:20 Antibody Screen Negative 05/09/24 12:20 Vitals Last Vital Signs Temp 97.9 F 05/10/24 11:30 Pulse 63 05/10/24 11:30 Resp 17 05/10/24 11:30 BP 127/61 05/10/24 11:30 Pulse Ox 99 05/10/24 11:30 O2 Del Method Room Air 05/10/24 11:30 O2 Flow Rate 0 05/09/24 16:48 Discharge Plan Discharge Patient Disposition: Home Health Service Condition: Stable Prescriptions: New Eliquis 2.5 mg tablet 2.5 mg PO BID 35 Days Qty: 70 0RF Continued biotin 1,000 mcg tablet,chewable 1,000 mcg PO BID cholecalciferol (vitamin D3) 1,000 unit tablet,chewable 1,000 unit PO QID ascorbate calcium (vitamin C) 500 mg tablet 500 mg PO BID multivitamin Tablet 1 tab PO QAM alprazolam 0.25 mg tablet 0.25 mg PO BID Citracal Plus Bone Density 300-200-13.5 mg-unit-mg tablet 1 tab PO DAILY omega-3 fatty acids [Fish Oil Concentrate] 1,000 mg capsule 1,000 mg PO BID lutein 20 mg tablet 20 mg PO BID losartan-hydrochlorothiazide 100-12.5 mg tablet 1 tab PO DAILY acetaminophen 500 mg capsule 1,000 mg PO BID hydroxychloroquine [Plaquenil] 200 mg tablet 200 mg PO BID Qty: 180 1RF gabapentin 300 mg capsule 600 mg PO .HS Qty: 180 1RF prednisone 5 mg tablet See Rx Instructions .ROUTE .COMPLEX Qty: 30 1RF Dose Instruction: TAKE 1 TABLET BY MOUTH EVERY DAY for 5 days NEEDED FOR joint pain flares Rx Instructions: TAKE 1 TABLET BY MOUTH EVERY DAY for 5 days NEEDED FOR joint pain flares ferrous sulfate 325 mg (65 mg iron) Tablet 325 mg PO DAILY Held tramadol 50 mg tablet 50 mg PO BID PRN (Reason: Pain (Scale Score 4-6)) Hold Instructions: Resume on 05/24/24. No Action hydrocodone-acetaminophen 7.5-325 mg tablet 1 tab PO Q6H PRN (Reason: pain) 5 Days Qty: 20 0RF Discharge Orders: Discharge Order (Routine); Ordered 05/10/24 Ordered By: Peng Luevano Other Ambulatory Orders: DME: Kj (Order) Location: None Selected Ordered By: Peng Luevano Referrals: [facility] ([facility]) [Outside] Peng Luevano DO [Physician] - 06/30/24 8:15 am Discharge Diet: Regular Discharge Activity: Limit activity as instructed Patient Instructions: Methocarbamol (By mouth) (Robaxin, Robaxin-750), Oxycodone, Rapid Release (By mouth) (ETH-Oxydose, Oxy IR,..., Ondansetron (By mouth) (Zofran, Zofran ODT, Zuplenz), Apixaban (By mouth) (Eliquis), Acute Wound Care (DC), Precautions after Total Joint Replacement Surgery (DC), Total Hip Replacement (DC), Hip Abduction Pillow (DC), Opioid Safety, Post Anesthesia Care Activity Restrictions/Additional Instructions: Orthopedic discharge instructions: Patient should keep dressings clean dry and intact Okay to shower over dressings if they do become wet these should be removed and new dressings applied Leave nena incisional VAC dressing on in place for 7 days batteries designed to work for 7 days after that may discontinue the battery and throw this away. Okay to leave the dressing on for the 2 weeks and we can take this off at the next appointment. Keep incisions clean dry and intact, leave Silverlon bandage dressings on in place for 7 days after that may rinse incisions with warm soapy water pat dry and redress with a dry dressing Weight-bear as tolerated to operative lower extremity Posterior hip precautions as instructed by physical therapy--posterior avoid hip flexion past 90 degrees, adduction, avoid internal rotation When sleeping or lying in bed in supine position use abduction pillow to prevent legs from crossing midline Ice as needed for pain and swelling Take pain medication as prescribed Take antinausea medication as needed Supplement with Citracal vitamin D for bone health and healing Pain medication can cause constipation. take [id number] stool softeners and or MiraLAX. 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
== END 2024-05-10 14:42 | disposition home health service (06) ==
LOC: MEDSURG 17:35
PROVIDERS: Physician Assistant; Admitting Provider Student in an Organized Health Care Education/Training Program; PCP Family Medicine; Visit Provider Student in an Organized Health Care Education/Training Program
PROC: 8E0Y0CZ Robotic Assisted Procedure of Lower Extremity, Open Approach (ICD-10-PCS; CPT 27130; principal; 2024-05-09 12:55)
DX: M16.11 Unilateral primary osteoarthritis, right hip (principal); I10 Essential (primary) hypertension; M81.0 Age-related osteoporosis without current pathological fracture
CPT/HCPCS: 27447; 20985; 36415; 51702; 73502; 80048; 85025; 86850; 86900; 97110; 97116; 97161; 97167; C1713; C1776; G0378; J0131; J0690; J1885; J2250; J2704; J3370; J7030; J7120

== ENCOUNTER → 2024-05-27 08:07 | Outpatient (BNVA) | payer MEDICARE, SELFPAY | PROVIDERS: PCP Family Medicine; Visit Provider Physician Assistant | DX: Z96.641 Presence of right artificial hip joint | CPT/HCPCS: 73502; 99024 ==

== ENCOUNTER → 2024-07-08 09:16 | Outpatient (BNVA) | payer MEDICARE, SELFPAY | PROVIDERS: PCP Family Medicine; Visit Provider Physician Assistant | DX: Z96.641 Presence of right artificial hip joint (principal) | CPT/HCPCS: 73502; 99024 ==

== ENCOUNTER → 2024-08-03 10:41 | Outpatient (BNVA) | payer MEDICARE, SELFPAY | PROVIDERS: PCP Family Medicine; Visit Provider Internal Medicine Rheumatology | DX: M19.041 Primary osteoarthritis, right hand (principal); M19.042 Primary osteoarthritis, left hand; G57.01 Lesion of sciatic nerve, right lower limb; M89.49 Other hypertrophic osteoarthropathy, multiple sites; Z79.899 Other long term (current) drug therapy | CPT/HCPCS: 99214 ==

== ENCOUNTER → 2024-10-26 14:01 | Outpatient (BNVA) | payer MEDICARE, SELFPAY | PROVIDERS: PCP Family Medicine; Visit Provider Physician Assistant | DX: Z96.641 Presence of right artificial hip joint (principal) | CPT/HCPCS: 99213 ==

== ENCOUNTER → 2025-01-25 14:24 | Outpatient (BNVA) | payer MEDICARE, SELFPAY | PROVIDERS: PCP Family Medicine; Visit Provider Physician Assistant | DX: Z96.641 Presence of right artificial hip joint (principal) | CPT/HCPCS: 73502; 99213 ==

== ENCOUNTER → 2025-02-01 11:07 | Outpatient (BNVA) | payer MEDICARE, SELFPAY | PROVIDERS: PCP Family Medicine; Visit Provider Internal Medicine Rheumatology | DX: M19.041 Primary osteoarthritis, right hand (principal); M19.042 Primary osteoarthritis, left hand; G57.01 Lesion of sciatic nerve, right lower limb; M89.49 Other hypertrophic osteoarthropathy, multiple sites; Z79.899 Other long term (current) drug therapy | CPT/HCPCS: 36415; 80076; 82306; 82565; 85025; 85651; 86140; 99214 ==

== ENCOUNTER → 2025-05-09 13:47 | Outpatient (BNVA) | payer MEDICARE, SELFPAY | PROVIDERS: PCP Family Medicine; Visit Provider Student in an Organized Health Care Education/Training Program | DX: Z96.641 Presence of right artificial hip joint (principal); Z47.1 Aftercare following joint replacement surgery | CPT/HCPCS: 73502; 99213 ==